=== PATIENT | male | born 1970 | race American Indian/Alaskan Native ===

== ENCOUNTER 2016-09-25 22:33 | Emergency (ER) | payer SELFPAY ==
[2016-09-25 22:38] VITALS: BP 117/76
--- NOTE | 2016-09-26 01:41 | Emergency Department Report ---
ED General Adult HPI - General Chief complaint: Skin/Abscess/Foreign Body Stated complaint: LUMP ON BACK/PAIN Time Seen by Provider: 09/26/16 00:47 Source: patient Mode of arrival: Ambulatory Limitations: No Limitations - History of Present Illness Onset/Timin -: Gradual, year(s) Location: back (right upper back subscapula mass ) Radiation: back, extremity Severity scale (0 -10): 3 Quality: aching Consistency: intermittent Improves with: none Worsens with: none Associated Symptoms: denies: fever/chills, headaches, nausea/vomiting, shortness of breath, weakness Treatments Prior to Arrival: none - Related Data Previous Rx's Medication Instructions Recorded Last Taken Type Naproxen [Naprosyn TAB] 500 mg PO BID PRN #60 tablet 09/26/16 Unknown Rx Allergies Allergy/AdvReac Type Severity Reaction Status Date / Time No Known Allergies Allergy Verified 09/25/16 22:38 ED Review of Systems ROS: Stated complaint: LUMP ON BACK/PAIN Other details as noted in HPI Constitutional: denies: chills, fever Eyes: denies: eye pain, eye discharge, vision change ENT: denies: ear pain, throat pain Respiratory: denies: cough, shortness of breath, wheezing Cardiovascular: denies: chest pain, palpitations Endocrine: no symptoms reported Gastrointestinal: denies: abdominal pain, nausea, diarrhea Genitourinary: denies: urgency, dysuria Musculoskeletal: back pain. denies: joint swelling, arthralgia Skin: other (right upper back mass right subscapula ). denies: rash, lesions Neurological: denies: headache, weakness, paresthesias Psychiatric: denies: anxiety, depression Hematological/Lymphatic: denies: easy bleeding, easy bruising ED Past Medical Hx - Past Medical History Previous Medical History?: No - Surgical History Past Surgical History?: No - Social History Smoking Status: Current Every Day Smoker Substance Use Type: None - Medications Home Medications: Home Medications Medication Instructions Recorded Confirmed Last Taken Type Naproxen [Naprosyn TAB] 500 mg PO BID PRN #60 tablet 09/26/16 Unknown Rx ED Physical Exam - General Limitations: No Limitations General appearance: alert, in no apparent distress - Head Head exam: Present: atraumatic, normocephalic - Eye Eye exam: Present: normal appearance - ENT ENT exam: Present: mucous membranes moist - Neck Neck exam: Present: normal inspection - Respiratory Respiratory exam: Present: normal lung sounds bilaterally. Absent: respiratory distress - Cardiovascular Cardiovascular Exam: Present: regular rate, normal rhythm. Absent: systolic murmur, diastolic murmur, rubs, gallop - GI/Abdominal GI/Abdominal exam: Present: soft, normal bowel sounds - Rectal Rectal exam: Present: deferred - Extremities Exam Extremities exam: Present: normal inspection - Back Exam Back exam: Present: full ROM, tenderness. Absent: CVA tenderness (R), muscle spasm, paraspinal tenderness, vertebral tenderness, rash noted - Expanded Back Exam Expanded Back exam: Absent: saddle anesthesia - Neurological Exam Neurological exam: Present: alert, oriented X3 - Psychiatric Psychiatric exam: Present: normal affect, normal mood - Skin Skin exam: Present: other (right upper back mass 3x4 cm no erythema no drainage no fluctuant ) ED Course Vital Signs 09/25/16 22:36 Temperature 98.6 F Pulse Rate 60 Respiratory 18 Rate Blood Pressure 117/76 [Right] O2 Sat by Pulse 97 Oximetry ED Medical Decision Making - Medical Decision Making pt is a 45 y/o aam with right upper back posterior shoulder mass for 1 yr , pt denies fall injury or trauma, pt complains of intermittent mass pain 4/10 aching that radiates to right arm there is no fever no chills no lymph mass is palpable 3x5 cm, nonfluctuant fixed mild pain to deep palpation there is no erythema no drainage no ecchymosis , plan as this mass has been present for 1 yr will rx nsaids prn po for pain , referral to general surgery for evaluation, pt given strict instructions to return to emergency of drainage fever or chills , or increase in symptoms pt verbalized agreement and understanding with discharge plan. Critical care attestation.: If time is entered above; I have spent that time in minutes in the direct care of this critically ill patient, excluding procedure time. ED Disposition Clinical Impression: Mass Disposition: DC-01 TO HOME OR SELFCARE Is pt being admited?: No Does the pt Need Aspirin: No Condition: Good Prescriptions: Naproxen [Naprosyn TAB] 500 mg PO BID PRN #60 tablet PRN Reason: Pain Referrals: HUSEYIN STOCKTON MD [Staff Physician] - 3-5 Days Forms: Work/School Release Form(ED) Time of Disposition: 01:48
== END 2016-09-26 02:05 | disposition home or self-care (01) ==
LOC: ED 22:33
DX: R22.2 Localized swelling, mass and lump, trunk (principal); M54.6 Pain in thoracic spine; F17.200 Nicotine dependence, unspecified, uncomplicated
CPT/HCPCS: 99282